=== PATIENT | male | born 1980 ===

== ENCOUNTER 2024-12-30 06:18 | Day surgery (SDC) | payer BC, SELFPAY | END 2024-12-30 08:33 | disposition home or self-care (01) | LOC: GI 06:18 | PROVIDERS: ATTENDING PHYSICIAN Internal Medicine Gastroenterology | DX: Z12.11 Encounter for screening for malignant neoplasm of colon (principal); K62.1 Rectal polyp; K64.8 Other hemorrhoids | CPT/HCPCS: 45380; 88305 ==